=== PATIENT | female | born 1955 | race Caucasian/White ===

== ENCOUNTER 2016-11-13 11:43 | Emergency (ER) | payer OTHER | END 2016-11-13 13:10 | disposition home or self-care (01) | LOC: ER1 11:43 | DX: M25.511 Pain in right shoulder (principal); G89.29 Other chronic pain; Z88.5 Allergy status to narcotic agent; Z91.041 Radiographic dye allergy status; K21.9 Gastro-esophageal reflux disease without esophagitis; Z79.899 Other long term (current) drug therapy | CPT/HCPCS: 73030; 96372; 99283; J1885 ==

== ENCOUNTER 2020-12-21 12:58 | Emergency (ER) | payer MEDICARE, OTHER ==
[2020-12-21 14:01] LABS: HEMOGLOBIN 11.3 gm/dl (12.3-15.3); RED BLOOD COUNT 4.43 M/UL (4.00-5.10); WHITE BLOOD COUNT 5.4 K/UL (4.5-11.0)
[2020-12-21 14:12] LABS: BUN/CREATININE RATIO 23 (0-10)
== END 2020-12-21 15:30 | disposition home or self-care (01) ==
LOC: ER1 12:58
PROVIDERS: Emergency Medicine
DX: M79.605 Pain in left leg (principal); M79.89 Other specified soft tissue disorders; Z86.718 Personal history of other venous thrombosis and embolism
CPT/HCPCS: 73562; 73610; 80053; 83880; 85025; 85379; 99283

== ENCOUNTER → 2020-12-22 | Outpatient (CLI) | payer MEDICARE, OTHER | LOC: EXRD 12:43 | DX: R22.42 Localized swelling, mass and lump, left lower limb (principal) | CPT/HCPCS: 93971 ==

== ENCOUNTER 2021-11-19 18:35 | Emergency (ER) | payer MEDICARE, OTHER | END 2021-11-19 21:29 | disposition home or self-care (01) | LOC: ER1 18:35 | DX: M25.561 Pain in right knee (principal); R79.1 Abnormal coagulation profile; J45.909 Unspecified asthma, uncomplicated; Z88.8 Allergy status to other drugs, medicaments and biological substances | CPT/HCPCS: 29530; 73564; 85379; 99283 ==